=== PATIENT | female | born 1965 | race Caucasian/White ===

== ENCOUNTER 2016-12-02 20:12 | Emergency (ER) | payer OTHER ==
--- NOTE | ~2016-12-02 | ER ---
PATIENT'S NAME: GARCÍAJUDIE HUSTON [facility] AGE: 51 Y [address] ROOM: [place] [address] LOCATION: [facility] ADMIT DATE: 12/02/2016 ER/Outpatient Report DISCHARGE DATE: FAMILY PHYSICIAN: Carri Low APRN ATTENDING PHYSICIAN: Enmanuel Rosen Time of Arrival: 2016 hours. Time of Evaluation: 2016 hours. CHIEF COMPLAINT: Unable to pee. HISTORY OF PRESENT ILLNESS: The patient is a 51-year-old female who presents to the emergency department today a chief complaint of inability to pee. She reports that it started about 14 hours prior to arrival. The patient recently underwent a left ovarian cystectomy with associated pelvic pain, status post surgery. She did have a left fallopian tube removal and ovary removal. This was performed by Dr. Leach. The patient denies any fevers or chills. No nausea or vomiting. No diarrhea or constipation. No abdominal pain. She just cannot pee. PAST MEDICAL HISTORY: Dyslipidemia, cervical cancer, and hypertension. PAST SURGICAL HISTORY: Ovary removed, bladder repair, and hysterectomy. SOCIAL HISTORY: The patient smokes a small amount for 25 years. Drinks alcohol occasionally. Denies any illicit drug use. ALLERGIES: TO BACTRIM. MEDICATIONS: Please see list. OB-MOLD TOOLING TECHNICIAN: Kathryn Leach MD. REVIEW OF SYSTEMS: All systems are reviewed by myself and negative with the exception of those discussed in the HPI and past medical history. PHYSICAL EXAMINATION: [facility] 51 Y [address] ROOM: [place] [address] LOCATION: [facility] ADMIT DATE: 12/02/2016 ER/Outpatient Report DISCHARGE DATE: FAMILY PHYSICIAN: Carri Low APRN ATTENDING PHYSICIAN: Enmanuel Rosen VITAL SIGNS: Weight 55.5 kg. Blood pressure 110/59, pulse 86, respiratory rate 16, temperature 98.4, and oxygen saturation 100% on room air. GENERAL: The patient is a 51-year-old female, well developed, well nourished, in no acute distress at this time. HEENT: Head: Normocephalic, atraumatic. Pupils are equal, round, and reactive to light and accommodation. Extraocular motions are intact. Nares are patent bilaterally. TMs are clear. Oropharynx is clear. NECK: Supple. There is no nuchal rigidity. CARDIOVASCULAR: Regular rate and rhythm. No murmurs, rubs, or gallops. LUNGS: Clear to auscultation bilaterally. No wheezes, rales, or rhonchi. ABDOMEN: Soft, mild tenderness to palpation in her lower abdomen. SKIN: Warm and dry. Bandages are in place. There is no evidence of drainage. They are clean, dry, and intact. LABORATORY DATA AND X-RAYS: None. IMPRESSION: 1. Urinary retention, status post postoperative day number 0. 2. Initial visit. EMERGENCY DEPARTMENT COURSE: The patient was brought back to the examination room. Seen and evaluated by myself. A Allen catheter is placed, the patient does have relief of symptoms. I have asked that she follows up with Dr. Leach tomorrow for re-evaluation, the patient is agreeable. I have discussed return to care instructions including fevers, chills, worsening symptoms, or any other concerns, return to the emergency department as soon as possible. The patient is agreeable without further questions at this time. DISPOSITION: The patient is discharged home in good condition. DO BRIANNA SEGURA/shaheedl /[id number] d: 12/03/16 0025 t: 12/09/16 1604, OUTPATIENT REPORT
[2016-12-02 20:51] LABS: BILIRUBIN URINE NEGATIVE (NEGATIVE); BLOOD URINE NEGATIVE /UL (NEGATIVE); COLOR URINE YELLOW (YELLOW); GLUCOSE URINE NEGATIVE (NEGATIVE); KETONE URINE 5 mg/dL (NEGATIVE); LEUKOCYTES URINE NEGATIVE /UL (NEGATIVE); NITRITE URINE NEGATIVE (NEGATIVE); PROTEIN URINE NEGATIVE (NEGATIVE); UROBILINOGEN URINE NORMAL (NORMAL)
[2016-12-02 20:59] LABS: TURBIDITY URINE CLEAR (CLEAR)
== END 2016-12-02 21:23 | disposition disaster alternative care site (69) ==
LOC: GMED 20:12
PROVIDERS: Emergency Medicine
PROC: 0T9B70Z Drainage of Bladder with Drainage Device, Via Natural or Artificial Opening (ICD-10-PCS; principal; 2016-12-02)
DX: R33.9 Retention of urine, unspecified (principal); I10 Essential (primary) hypertension; E78.5 Hyperlipidemia, unspecified; C53.9 Malignant neoplasm of cervix uteri, unspecified; F17.210 Nicotine dependence, cigarettes, uncomplicated; Z90.721 Acquired absence of ovaries, unilateral; Z88.1 Allergy status to other antibiotic agents; Z90.710 Acquired absence of both cervix and uterus; Z98.890 Other specified postprocedural states; Z79.899 Other long term (current) drug therapy

== ENCOUNTER → 2016-12-02 | Day surgery (SDC) | payer OTHER ==
[~2016-12-02] VITALS: Ht 147.3 cm; Wt 51.2 kg
[~2016-12-02] MED LIST: CIPRO500 MG PO; COLACE100 MG PO; DIOVAN160 MG PO; DIOVAN40 MG PO; ESTROVEN 155 M155 MG PO; FISH OIL 1,0001 EACH PO; HYDROCHLOROTH12.5 MG PO; MAXZIDE-25MG 371 TAB PO; MOBIC15 MG PO; MOTRIN800 MG PO; MULTIVITAMINS1 EAC1 PO; NORCO 5-325 TA1 EACH PO; ONE DAILY FOR1 EAC2 PO; VITAMIN D1000 UNI1 PO; XYZAL5 MG PO
--- NOTE | ~2016-12-02 | OR ---
PATIENT'S NAME: JUDIE GARCÍA [facility] AGE: 51 Y [address] ROOM: [place] [address] LOCATION: [facility] ADMIT DATE: 12/02/2016 OR/Procedure Report DISCHARGE DATE: FAMILY PHYSICIAN: Carri Low APRN ATTENDING PHYSICIAN: SHAMAR LEACH SURGEON: Shamar Leach MD SUPERVISOR WIRE ROPE FABRICATION: DATE OF PROCEDURE: 12/02/2016 PROCEDURE PERFORMED: Exam under anesthesia, laparoscopic left salpingo oophorectomy. PREOPERATIVE DIAGNOSES: Left ovarian cyst with associated pelvic pain status post hysterectomy. POSTOPERATIVE DIAGNOSES: Left ovarian cyst with associated pelvic pain status post hysterectomy. SPECIMENS: Left fallopian tube and ovary. FINDINGS: Approximately 2 to 3 cm left ovarian cyst that appeared hemorrhagic. Normal-appearing peritoneal surfaces. Uterus and right fallopian tube and ovary previously surgically removed. ESTIMATED BLOOD LOSS: 25 mL. ANTIBIOTICS: None indicated. ANESTHESIA: General. COMPLICATIONS: None. DISPOSITION: The patient is stable and sent to PACU. INDICATION FOR THE PROCEDURE: The patient is a 51-year-old female, who was evaluated in the office after a referral from [facility] for left-sided ovarian cyst. The patient reports that she has had associated bloating and left-sided pelvic pain for the last several months which she feels has been getting worse. She has previously had a hysterectomy and right salpingo- oophorectomy. CA-125 was normal. She was counseled regarding options including ovarian cystectomy and observation. The patient desired to proceed with definitive management. She is aware that removal of the left fallopian tube and ovary, will put her into surgical menopause. She is aware of the risks of procedure to include, but not limited to, risk of injury to bowel and bladder, risks associated with anesthesia, risk of thromboembolism, risk of PATIENT'S NAME: JUDIE GARCÍA [facility] AGE: 51 Y [address] ROOM: [place] [address] LOCATION: [facility] ADMIT DATE: 12/02/2016 OR/Procedure Report DISCHARGE DATE: FAMILY PHYSICIAN: Carri Low APRN ATTENDING PHYSICIAN: SHAMAR LEACH bleeding requiring possible transfusion, and risk of infection. She is aware of the risks and desired to proceed. DESCRIPTION OF PROCEDURE: The patient was seen in the preoperative area where consents were reviewed and all questions answered. She was then taken back to the operating room and placed under general anesthesia without difficulty. She was positioned in dorsal lithotomy position in [facility]. She was prepped and draped in the usual sterile fashion. A sponge stick was placed in the vagina. Surgeon's gloves were then changed, and attention was turned to the abdomen. A Veress needle was introduced into the umbilicus with an opening pressure of 6 mmHg. Abdomen was then insufflated to a pressure of 15 mmHg. A 5 mm incision was made in the umbilicus and a port was advanced through this incision. Placement was confirmed with direct visualization with the laparoscope. An additional 5 mm port was placed in the patient's left lower quadrant. The left ovary was noted to be slightly enlarged, approximately 3 cm in size with what appeared to be a hemorrhagic cyst. Otherwise the remainder of the peritoneal surfaces appeared normal. There were minimal adhesions of the bowel to the left pelvic sidewall. The ureter was well visualized and appeared to be well away from the left tube and ovary. The LigaSure was then advanced through the 5 mm port site and successive bites were taken along the ovary and left fallopian tube. The tube and ovary were removed and cyst ruptured upon removal with the LigaSure. The ovary and tube were placed in the posterior cul-de-sac and a bag attempted to be passed through the 5 mm port site. However bag was the incorrect size. An incision was made to enlarge the port site to a 10 mm port. A 10 mm port was placed under direct visualization. The tube and ovary were then grasped and brought out through the 10 mm port site in the left lower quadrant. Pedicles were inspected and appeared hemostatic. All instruments were removed from the abdomen. The patient was given 2 deep breaths. The trocars were removed. The 10 mm port site fascia was closed with a single [id number] suture of 0 Vicryl. The skin was then closed at both sites with 4-0 Vicryl. Band-Aids were applied over the incisions. All needle, sponge, and instrument counts were noted to be correct x2. The patient was sent to the PACU in stable condition. SHAMAR TORPIN, MD GT/modl /[id number] d: 12/02/16 1714 t: 12/09/16 194, OPERATIVE SUMMARY
== END ==
LOC: GSDC 11-27 10:00 → GPOC 11-27 10:00 → GSDC 07:20
PROC: 0UB14ZZ Excision of Left Ovary, Percutaneous Endoscopic Approach (ICD-10-PCS; principal; 2016-12-02)
PROC: 0UB64ZZ Excision of Left Fallopian Tube, Percutaneous Endoscopic Approach (ICD-10-PCS; 2016-12-02)
DX: D27.1 Benign neoplasm of left ovary (principal); N83.12 Corpus luteum cyst of left ovary; I10 Essential (primary) hypertension; E78.00 Pure hypercholesterolemia, unspecified; F17.210 Nicotine dependence, cigarettes, uncomplicated; Z86.718 Personal history of other venous thrombosis and embolism; Z90.710 Acquired absence of both cervix and uterus; Z98.51 Tubal ligation status
CPT/HCPCS: J1100; J2001; J2250; J2405; J3010; J7120